=== PATIENT | male | born 1965 | race Caucasian/White ===

== ENCOUNTER → 2017-12-18 | Outpatient (CLI) | payer BC ==
[~2017-12-18] MED LIST: CEFTRIAXONE2 G1 IVPB; FENTANYL PA50 MCG/HR TRANSDERM; FLEXERIL PO; HYDROCODONE-AP1 EAC6 PO; MIRALAX17 GM PO; NEURONTIN 300300 M1 PO; OXYCODONE HCL E10 MG PO; OXYCONTIN10 M1 PO; OXYCONTIN15 MG PO; PERCOCET 10-321 EACH PO; PREDNISONE 10 M10 MG PO; TRAMADOL 50 MG50 MG PO; TYLENOL325 MG PO
== END ==
LOC: RAD 10:47
DX: R05 Cough (principal)

== ENCOUNTER → 2021-08-30 | Outpatient (CLI) | payer OTHER | LOC: SJCVCIMAG 08:54 | PROVIDERS: ATTEND Internal Medicine | DX: R94.31 Abnormal electrocardiogram [ECG] [EKG] (principal); I07.1 Rheumatic tricuspid insufficiency; I44.4 Left anterior fascicular block; I10 Essential (primary) hypertension; E78.5 Hyperlipidemia, unspecified; Z95.3 Presence of xenogenic heart valve; Z86.79 Personal history of other diseases of the circulatory system; I35.1 Nonrheumatic aortic (valve) insufficiency; Z79.82 Long term (current) use of aspirin; Z79.899 Other long term (current) drug therapy; Z87.891 Personal history of nicotine dependence; Z82.49 Family history of ischemic heart disease and other diseases of the circulatory system ==